=== PATIENT | female | born 1970 | race Caucasian/White ===

== ENCOUNTER → 2020-03-08 16:17 | Outpatient (CLI) | payer OTHER, SELFPAY ==
--- NOTE | ~2020-03-08 | MM_ITS ---
EXAMINATION: MM screening [facility] BI w irwin HISTORY: Screening mammogram TECHNIQUE: Craniocaudal and mediolateral oblique 3-D tomosynthesis images were obtained and synthetic 2-D images were generated. CAD analysis was submitted and interpreted. COMPARISON: 01/07/2019, 01/01/2018, 01/03/2017, 12/14/2016 BREAST PARENCHYMAL COMPOSITION: The breasts are heterogeneously dense, which may obscure small masses . FINDINGS: There is no evidence of suspicious mass, calcification, or architectural distortion to sugg est malignancy in either breast. There has been no suspicious interval change. IMPRESSION: 1. No mammographic evidence of malignancy. 2. Recommend routine screening mammography in one year. BI-RADS Category 1: Negative Reviewed, dictated and finalized at location A.
== END ==
PROVIDERS: PCP Family Medicine; Visit Provider Obstetrics & Gynecology
DX: Z12.31 Encounter for screening mammogram for malignant neoplasm of breast (principal)
CPT/HCPCS: 77063; 77067

== ENCOUNTER → 2021-03-30 15:40 | Outpatient (CLI) | payer BC, SELFPAY ==
--- NOTE | ~2021-03-30 | MM_ITS ---
EXAMINATION: MM screening [facility] BI w irwin HISTORY: Screening mammogram TECHNIQUE: Craniocaudal and mediolateral oblique 3-D tomosynthesis images were obtained and synthetic 2-D images were generated. CAD analysis was submitted and interpreted. COMPARISON: 03/08/2020, 01/07/2019, 12/28/2017 bilateral digital screening mammogram examinations BREAST PARENCHYMAL COMPOSITION: There are scattered areas of fibroglandular density. FINDINGS: There is a cluster of grouped microcalcifications near the lateral subareolar area of the l eft breast. Diagnostic left mammogram with magnification views is recommended. Otherwise there is no evidence of suspicious mass, calcification, or architectural distortion to sugg est malignancy in either breast. There has been no other suspicious interval change. IMPRESSION: 1. Cluster of grouped microcalcifications near lateral subareolar left breast 2. Diagnostic left mammogram with magnification views is recommended BI-RADS Category 0: Incomplete: Needs additional imaging evaluation. Reviewed, dictated and finalized at location A.
== END ==
PROVIDERS: Visit Provider Obstetrics & Gynecology
DX: Z12.31 Encounter for screening mammogram for malignant neoplasm of breast (principal); R92.8 Other abnormal and inconclusive findings on diagnostic imaging of breast
CPT/HCPCS: 77063; 77067

== ENCOUNTER 2021-04-14 12:28 | Outpatient (CLI) | payer BC, SELFPAY ==
--- NOTE | ~2021-04-14 | MM_ITS ---
EXAMINATION: MM diagnostic mammo unilat LT HISTORY: Follow-up left breast calcifications TECHNIQUE: Additional 3-D tomosynthesis images of the left breast were performed and synthetic 2-D im ages were generated. CAD analysis was submitted and interpreted. COMPARISON: 03/30/2021 BREAST PARENCHYMAL COMPOSITION: The breasts are heterogenously dense, which may obscure small masses. FINDINGS: There are punctate subareolar calcifications of the left breast which have a monomorphic ap pearance, likely benign. There are no discrete masses or architectural distortion. IMPRESSION: 1. Probable benign left breast calcifications. 2. Recommend 6 month follow-up diagnostic left mammogram. BI-RADS category 3, probably benign findings. Reviewed, dictated and finalized at location A.
== END 2021-04-14 12:29 | disposition home or self-care (01) ==
PROVIDERS: Visit Provider Obstetrics & Gynecology
DX: R92.1 Mammographic calcification found on diagnostic imaging of breast (principal)
CPT/HCPCS: 77065

== ENCOUNTER → 2021-10-14 14:12 | Outpatient (CLI) | payer BC, SELFPAY ==
--- NOTE | ~2021-10-14 | MMUS_ITS ---
EXAMINATION: MM diagnostic [facility] LT w irwin, US breast LT limited HISTORY: Probable benign left breast calcifications reported on 04/2021 diagnostic left mammogram TECHNIQUE: ML, MLO and CC 3-D tomosynthesis images of the left breast were performed and synthetic 2- D images were generated. Magnification ML, MLO and CC views of left breast. CAD analysis was submitte d and interpreted. High resolution left subareolar breast ultrasound was performed. COMPARISON: 04/2021 diagnostic left mammogram 03/30/2021 bilateral screening mammogram BREAST PARENCHYMAL COMPOSITION: There are scattered areas of fibroglandular density. FINDINGS: MAMMOGRAPHIC FINDINGS: Occasional benign microcalcifications are again noted, including a small subtle cluster grouped micro calcifications in the lateral subareolar area, which includes multiple rounded microcalcifications in one larger amorphous calcification one might expect with calcified fibroadenoma or papilloma.. No vargas spicious linear or branching microcalcifications are noted. Very occasional additional microcalcifications are noted on the left, with benign features. ULTRASOUND: Real-time imaging of the subareolar area was performed. 1-2 o'clock subareolar area: Parallel circumscribed sonolucency measuring 2.1 x 4.4 x 6.5 mm, with th rough transmission, consistent with small cyst or duct 6:00 subareolar area: Septated 2.4 x 4.7 x 5.6 mm cyst with through transmission No suspicious mass or posterior shadowing is detected. IMPRESSION: 1. Benign findings 2. Routine annual mammographic screening is recommended BI-RADS Category 2: Benign finding(s). Reviewed, dictated and finalized at location A. IMPRESSION: 1. Benign findings 2. Routine annual mammographic screening is recommended BI-RADS Category 2: Benign finding(s).
== END ==
PROVIDERS: PCP Family Medicine; Visit Provider Obstetrics & Gynecology
DX: R92.1 Mammographic calcification found on diagnostic imaging of breast (principal)
CPT/HCPCS: 76642; 77061; 77065; G0279

== ENCOUNTER → 2022-11-28 15:32 | Outpatient (CLI) | payer BC, SELFPAY ==
--- NOTE | ~2022-11-28 | MM_ITS ---
EXAMINATION: MM screening [facility] BI w irwin HISTORY: Screening mammogram TECHNIQUE: Craniocaudal and mediolateral oblique 3-D tomosynthesis images were obtained and synthetic 2-D images were generated. CAD analysis was submitted and interpreted. COMPARISON: 10/14/2021 diagnostic left mammogram and limited left breast ultrasound 04/14/2021 diagnostic left mammogram 03/30/2021, 02/29/2020 bilateral screening mammogram BREAST PARENCHYMAL COMPOSITION: There are scattered areas of fibroglandular density. FINDINGS: There is no evidence of suspicious mass, calcification, or architectural distortion to sugg est malignancy in either breast. There has been no suspicious interval change. IMPRESSION: 1. No mammographic evidence of malignancy. 2. Recommend routine screening mammography in one year. BI-RADS Category 1: Negative Reviewed, dictated and finalized at location A.
== END ==
PROVIDERS: PCP Family Medicine; Visit Provider Obstetrics & Gynecology
DX: Z12.31 Encounter for screening mammogram for malignant neoplasm of breast (principal)
CPT/HCPCS: 77063; 77067

== ENCOUNTER → 2023-11-06 16:43 | Outpatient (CLI) | payer OTHER, SELFPAY ==
--- NOTE | ~2023-11-06 | XR_ITS ---
EXAM: XR hip RT 2V w AP pelvis DATE: 11/06/2023 16:57 HISTORY: M25.551 - Pain in right hip,worsenig trouble w/flexibility . COMPARISON: None available. FINDINGS: Normal mineralization. No fracture or dislocation. No lytic or blastic lesion. IUD overlyi ng the pelvis. Pelvic phleboliths. Severe superior joint space narrowing and subchondral sclerosis in the right hip, with moderate osteophytosis. No erosion or periosteal change. Soft tissues within nor mal limits. IMPRESSION: Severe right hip osteoarthritis. Reviewed, dictated and finalized at location K.
== END ==
PROVIDERS: PCP Family Medicine; Visit Provider Family Medicine
DX: M16.11 Unilateral primary osteoarthritis, right hip (principal)
CPT/HCPCS: 73502

== ENCOUNTER 2024-02-13 13:44 | Outpatient (CLI) | payer OTHER, SELFPAY ==
--- NOTE | ~2024-02-13 | MM_ITS ---
EXAMINATION: MM screening [facility] BI w irwin HISTORY: Screening TECHNIQUE: Craniocaudal and mediolateral oblique 3-D tomosynthesis images were obtained and synthetic 2-D images were generated. CAD analysis was submitted and interpreted. COMPARISON: Comparison to multiple prior studies sequentially, with oldest reviewed study dated 01/07. BREAST PARENCHYMAL COMPOSITION: Not dense: There are scattered areas of fibroglandular density. FINDINGS: There is no evidence of suspicious mass, calcification, or architectural distortion to sugg est malignancy in either breast. There has been no suspicious interval change. IMPRESSION: 1. No mammographic evidence of malignancy. 2. Recommend routine screening mammography in one year. BI-RADS Category 1: Negative Reviewed, dictated and finalized at location B.
== END 2024-02-13 13:45 | disposition home or self-care (01) ==
LOC: MICIMG 13:44
PROVIDERS: PCP Obstetrics & Gynecology; Visit Provider Obstetrics & Gynecology
DX: Z12.31 Encounter for screening mammogram for malignant neoplasm of breast (principal)
CPT/HCPCS: 77063; 77067

== ENCOUNTER 2024-02-22 14:13 | Outpatient (CLI) | payer OTHER, SELFPAY ==
[2024-02-22 14:32] LABS: Hematocrit 40.3 % (37.0-47.0); Hemoglobin 13.5 g/dL (12.0-15.0)
--- NOTE | 2024-02-22 14:35 | ECG_ITS ---
Test Date: 2024-02-22 14:42:42 Measurements Intervals [place] Rate: 78 P: 62 KS: 178 QRS: 55 QRSD: 89 T: 52 QT: 372 QTc: 424 Interpretive Statements SINUS RHYTHM NORMAL ECG No previous ECG available for comparison Electronically Signed On 02-22-2024 14:45:03 CDT by [place] Ornelas D.O.
[2024-02-22 14:41] LABS: Albumin Level 4.4 g/dL (3.5-5.1); Estimated Glomerular Filt Rate > 60; Glucose 112 mg/dL (65-110)
== END 2024-02-22 14:14 | disposition home or self-care (01) ==
LOC: ANHLAB 14:14
PROVIDERS: PCP Family Medicine; Visit Provider Orthopaedic Surgery
DX: E55.9 Vitamin D deficiency, unspecified (principal); E78.5 Hyperlipidemia, unspecified; M16.11 Unilateral primary osteoarthritis, right hip; I10 Essential (primary) hypertension
CPT/HCPCS: 36415; 82040; 82565; 82947; 85014; 85018; 93005

== ENCOUNTER 2024-04-30 13:56 | Outpatient (CLI) | payer BC, SELFPAY ==
[2024-04-30 15:28] LABS: Basophils Percent Auto 0.6 % (0.2-1.2); Eosinophils Absolute Auto 0.1 K/mm3 (0-0.3); Eosinophils Percent Auto 1.5 % (0-4.4); Hematocrit 41.5 % (37.0-47.0); Hemoglobin 13.7 g/dL (12.0-15.0); Immature Granulocyte Absolute 0.02 K/mm3 (0.00-0.031); Immature Granulocyte Percent A 0.3 % (0-0.5); Lymphocytes Absolute Auto 2.28 K/mm3 (0.9-3.2); Lymphocytes Percent Auto 31.8 % (18.3-44.2); Mean Corpuscular Hemoglobin 30.9 pg (26-34); Mean Corpuscular Volume 93.7 fl (80-100); Mean Platelet Volume 8.7 fl (7.4-10.4); Monocytes Absolute Auto 0.7 K/mm3 (0.1-0.6); Monocytes Percent Auto 10.3 % (2.6-8.5); Neutrophils Percent Auto 55.5 % (45.5-73.1); Platelet Count Result 232 k/mm3 (150-375); Red Blood Count 4.43 M/mm3 (4.2-5.4); Red Cell Distribution Width 11.4 % (11.5-14.5); White Blood Count 7.2 K/mm3 (4.5-10.0)
[2024-04-30 15:39] LABS: Albumin Level 4.8 g/dL (3.5-5.1); Estimated Glomerular Filt Rate > 60; Glucose 113 mg/dL (65-110)
[2024-04-30 16:05] LABS: Urine Cotinine NEGATIVE
[2024-04-30 16:45] LABS: MRSA (PCR) NOT DETECTED (NOT DETECTE)
== END 2024-04-30 13:57 | disposition home or self-care (01) ==
PROVIDERS: PCP Family Medicine; Visit Provider Orthopaedic Surgery
DX: M16.11 Unilateral primary osteoarthritis, right hip (principal); Z01.818 Encounter for other preprocedural examination
CPT/HCPCS: 80307; 82040; 82565; 82947; 83036; 85025; 87641

== ENCOUNTER 2024-05-22 01:53 | Day surgery (SDC) | payer BC, SELFPAY ==
[2024-04-30 14:18] VITALS: BP 138/85; PULSE 76; RESP 16; TEMP 36.7; O2SAT 100; BMI 32.5
--- NOTE | 2024-04-30 14:37 | PC.NURSE ---
Report to the Outpatient Waiting Room, entrance under the green pavilion located off [facility], at time ___8:30AM____ on date ___05/22/24____. Planned Procedure Time: ___10:30AM .? Time changes happen often and if your time is changed the preop area will call you the afternoon before. - You and your visitor will be asked to self-screen and do not enter if you have any COVID symptoms. Please call surgeon if you need to reschedule. - A mask is optional within the hospital at this time. Patients may have clear liquids (water, carbonated beverages, clear teas, apple juice) until 3 hours prior to surgery with a maximum of 20 ounces. - No food from midnight until time of surgery and no smoking. This includes no chewing gum, candy or mints. Take only the following medications with a SIP of water on the morning of surgery: NONE DO NOT STOP ANY OF YOUR OTHER PRESCRIPTION MEDICATIONS PRIOR TO SURGERY EXCEPT THE FOLLOWING Medications to discontinue per physician HOLD MELOXICAM (NSAIDS) AND ALL VITAMINS/SUPPLEMENTS 7 DAYS PRE-OP PER DR LLANOS Date to take last dose 05/14/24 Please no make-up, nail japanese, hairspray, perfume, deodorant, or body powder the day of surgery.? No jewelry (including any body piercings) or valuables the day of surgery, leave them at home.? Please take a shower or bath the night before, or the morning of, surgery with an antibacterial soap.? Wear comfortable, loose fitting clothing.? - Jewelry must be removed prior to entering the operating room.? Rings and piercings that are not removed may be cut off. - The hospital will not accept responsibility for valuables.? - Please leave all valuables, including medications, at home the day of surgery. If you are going home after surgery, a licensed delivery driver assistant must drive you home.? - NO public transportation without another adult if you receive anesthesia. - We recommend that an adult stay with you for 24 hours following discharge. - We also recommend that you do not drive, make important decision, drink alcoholic beverages, or take any drugs that were not prescribed by your health care provider for at least 24 hours after your discharge time. Follow any additional instructions given to you from your surgeon. Telephone instructions given to ____PATIENT & HUSBAND and asked if any additional questions and then verbalized understanding. Patient advised to call surgeon office or pre surgery nurse liaison [phone] if any additional questions.
[2024-05-22] VITALS (15 sets, daily range): BP systolic 101–152; BP diastolic 50–85; PULSE 74–97; RESP 10–20; TEMP 35.9–37; O2SAT 94–100
--- NOTE | ~2024-05-22 | XR_ITS ---
EXAMINATION: XR hip RT min 2V DATE: 05/22/2024 12:59 INDICATION: Right total hip arthroplasty. TECHNIQUE: No prior studies for comparison. FINDINGS: There is a right total hip arthroplasty in expected position. Subcutaneous gas with soft t issue swelling are consistent with recent surgery. IMPRESSION: 1. Recent right total hip arthroplasty. Reviewed, dictated and finalized at location B. NE OILER
--- NOTE | ~2024-05-22 | XR_ITS ---
EXAMINATION: XR surgery orthopedic DATE: 05/22/2024 11:23 INDICATION: Unilateral primary osteoarthritis, right hip. TECHNIQUE: 2 intraoperative fluoroscopic views of right hip were obtained. COMPARISON: None. FINDINGS: There is a total right hip arthroplasty in near-anatomic alignment. No displaced fracture. The soft tissue defect overlying the greater tuberosity decreases sensitivity and specificity for fra cture. There is a cable around the proximal femur. IMPRESSION: 1. Total right hip arthroplasty in near-anatomic alignment. Reviewed, dictated and finalized at location A. HOUSEKEEPER
--- NOTE | 2024-05-22 07:18 | WPDHPUPDATE1 ---
History and Physical Update Update Date/Time: 05/22/24 07:18 History and Physical has been reviewed, including an updated exam of the patient. There are NO changes in the patient's condition. Risks, benefits, and alternatives have been discussed and questions answered. Patient agrees to proceed with procedure.
[2024-05-22] MEDS: ACETAMINOPHEN 500 MG TABLET 1000 MG PO (08:45)
[2024-05-22] MEDS: LACTATED RINGERS 1,000 ML 30 ML IV CONT (08:45)
[2024-05-22] MEDS: SODIUM CHLORIDE 0.9% IV 37.7 ML, MORPHINE SULFATE INJ (*CRX) 2 MG, ROPivacaine HCL 1% 2... INFILTRATE (08:46)
[2024-05-22] MEDS: TRANEXAMIC ACID 1,000 MG/10 ML AMPUL 1000 MG IV PUSH (08:47)
--- NOTE | 2024-05-22 09:27 | P.PNAN_ITS ---
Anes - Initial Pre Proc Eval Procedure: Operation Date: 05/22/24 10:30 Proposed Procedures p Right Total Hip Arthroplasty - Tong West MD Date/Time: 05/22/24 09:27 Surgeon: Tong West MD Pre Op Diagnosis: primary oa right hip Patient Data Age: 54 Gender: F Height: 1.7 m Weight: 93.5 kg Last Vital Signs Temp 98.0 F 04/30/24 14:18 Pulse 76 04/30/24 14:18 Resp 16 04/30/24 14:18 BP 138/85 04/30/24 14:18 Pulse Ox 100 04/30/24 14:18 O2 Del Method Room Air 04/30/24 14:18 Allergies Allergy/AdvReac Type Severity Reaction Status Date / Time No Known Allergies Allergy Verified 04/30/24 15:06 Home Medications ?Medication ?Instructions ?Recorded ?Confirmed ?Type ascorbic acid (vitamin C) 1,000 mg 1 g PO DAILY 10/10/21 04/30/24 History tablet vitamin B complex (B-Complex 1 tablet PO DAILY 10/10/21 04/30/24 History tablet) ergocalciferol (vitamin D2) 1,250 50,000 unit PO WEEKLY #4 caps 10/29/23 04/30/24 Rx mcg (50,000 unit) capsule (Vitamin D2) meloxicam 15 mg tablet 15 mg PO DAILY PRN pain #30 tabs 11/06/23 04/30/24 Rx lisinopril 30 mg tablet 30 mg PO QAM 04/30/24 04/30/24 History Patient hx anesthesia problems: none Family hx anesthesia problems: none Results Review: All pre-operative results and documents have been reviewed as part of the pre- operative evaluation. [facility] Past Medical History Medical History Arthritis of right hip Chronic pain of right hip (~2022) x-ray of the right hip 11/06/2023 with severe osteoarthritis. Encounter for IUD insertion mirena iud 2018 BMI 28.0-28.9,adult BMI 27.0-27.9,adult Overweight (BMI 25.0-29.9) BMI 30.0-30.9,adult Obesity (BMI 30.0-34.9) COVID-19 (~01/31/21) Elevated alkaline phosphatase level (09/25/20) alkaline phosphatase slightly elevated at 133 on 09/25/2020. Level normal at 96 on 10/08/2021. Level normal at 93 with AST 16, ALT 8 on 10/14/2022. Colon cancer screening Breast cancer screening by mammogram Mammogram normal 11/28/2022. Mixed hyperlipidemia Total cholesterol 154, triglycerides 41, HDL 83, LDL 61 on 10/08/2021. Total cholesterol 171, triglycerides 38, HDL 77, LDL 86 on 10/14/2022. Vitamin B12 deficiency anemia Level normal at 770 on 10/08/2021. Folic acid normal at greater than 20 with hemoglobin 14.6. Level normal at 836 with hemoglobin 13.7 on 11/03/2023. Bilateral chronic knee pain Adult BMI 37.0-37.9 kg/sq m Tooth pain Family History Family History Father Malignant neoplasm of prostate Mother Family history of diabetes mellitus in first degree relative Diabetes mellitus, Onset Age: 56 Family history of mental disorder, Onset Age: 56 Depression, Onset Age: 56 Grandparent Diabetes mellitus, Onset Age: 61 Family history of cardiovascular disease Family history of Alzheimer's disease, Onset Age: 87 Other Hypertension Social History Social History Smoking status: Never smoker Alcohol intake: current Drinks per week: 14 Substance use: never Do You Feel Safe in your Home?: Yes Lack of Transportation: No Lack of Food: Never True Current Housing: I Have Housing Concerned About Future Housing: No Difficulty Paying Gas/Electric Bills: No Difficulty Paying for Meds: No Currently Unemployed: No Education: Bachelor's Degree Difficulty w/ Childcare or Family Care: No Living arrangements: with family Additional living arrangements comments: [place] Occupation/Education: occupation Gender identity (if verbalized by the patient): Female Sexual Orientation (if Verbalized by the Patient): Straight or Heterosexual Spiritual care concerns: No Anes - Eval Final PreProcedure Day of Procedure 05/22/24 09:27 Patient weight: obese Heart: regular rate and rhythm Lungs: clear to auscultation Airway: Mallampati scale class II and special considerations (Missing post upper R tooth. ) Neurological: alert and oriented Last oral intake: >/= 8 hours ASA classification: III Emergent: no Anesthetic plan: proceed Anesthesia type and monitoring: general ETT and standard monitoring Results Review: All pre-operative results and documents have been reviewed as part of the pre- operative evaluation. HTN, EKG w NSR. Informed Consent: The patient's anesthetic plan and its attendant risks and benefits were discussed with the patient/family/POA. Questions were solicited and answers provided to the satisfaction of the patient/family/POA.
[2024-05-22] MEDS: ceFAZolin 2 GM/D5W 50 ML 2 GM/50 ML BAG IVPB ×2 (09:45→17:12)
[2024-05-22 10:52] LABS: BEDSIDEPREGUCG Negative (Negative)
[2024-05-22] MEDS: fentaNYL CITRATE INJ (*CRX) 100 MCG/2 ML VIAL 25 MCG IV PUSH ×4 (12:56→13:12)
--- NOTE | 2024-05-22 14:37 | ADMGEN ---
This patient, Xenia Marmolejo, was admitted to [facility] Surg Room 323-02. Patient/family oriented to hospital policies and general routines including ID bracelet, bed and alarms, visiting hours, pain management, procedures, bathroom and other care routines, personal items, smoking policy, room service/diet, and visiting hours. Information on how to activate the Rapid Response Team has been discussed. Patient/Family are encouraged to report perceived risks to care and to ask questions if they do not understand what they are told or what they should do.
[2024-05-22] MEDS: SODIUM CHLORIDE 0.9% IV 1,000 ML 125 ML IV CONT (15:24)
[2024-05-22] MEDS: lisinopriL 10 MG TABLET 30 MG PO (15:25)
[2024-05-22] MEDS: SENNA/DOCUSATE SODIUM TABLET 2 TAB PO (16:26)
[2024-05-22] MEDS: MELOXICAM 7.5 MG TABLET PO (16:26)
[2024-05-22] MEDS: ACETAMINOPHEN 325 MG TABLET 650 MG PO (17:12)
--- NOTE | 2024-05-22 17:18 | W.PM.PROC2 ---
Procedure Note - Detailed Date of Procedure 05/22/24 Pre-op Diagnosis Severe right hip arthritis secondary to hip dysplasia Post-op Diagnosis Same Procedure Performed Right Total Hip Arthroplasty Surgeon Tong West MD Drafter Electromechanical Priya Muir PA-C Anesthesia General Findings Dysplasia of the hip. Good bone coverage for the acetabulum. Minimal nisqually femoral anteversion and small proximal diameter. Intraoperative calcar fracture during femoral component insertion. The stem was removed, a cable placed around the calcar, and the stem replaced with excellent press fit. Due to the deep soft tissue envelope, a negative pressure dressing was placed. Description of Procedure The patient was given preoperative antibiotics. A general anesthetic was administered. The patient was carefully placed in the lateral decubitus position on the PEG board. The shoulders and hips were carefully positioned for component and leg length positioning reference. The hip was prepped and draped in the usual sterile fashion. A longitudinal incision was created over the posterior aspect of the greater trochanter. Careful dissection was brought down through the deep fascia with electrocautery. A minimally invasive optimized posterior approach to the hip was performed. The short external rotators and capsule were taken down in an L-shaped capsulotomy. The tissue was tagged for later repair using number 2 high strength suture. The femoral neck was measured and taken in situ. The femoral head was removed. The acetabulum was carefully exposed. The inferior capsule was released. The labrum was resected. The acetabulum was sequentially reamed to the intended cup size. The cup was impacted into position with excellent press-fit. Typical anatomic landmarks, including the bony contact points as well as the inferior transverse acetabular ligament were used to confirm cup positioning with preoperative templating. A screw was placed for added cup stability. The trial liner was placed. Attention was turned to the femur, which was carefully exposed. The hip was reamed and then broached sequentially. Excellent press-fit was obtained with the broach. The hip was trialed. Measurements were utilized, including the lesser trochanter as well as the center of the femoral head and the tip of the trochanter, and excellent assessment of the offset and leg lengths were confirmed. Intraoperative x-ray was taken. The stem was downsized from a 3 to a 2. The real component was impacted into position. The medial calcar developed a fracture line. The stem was removed and a 2.0 mm cable was placed around the calcar. The stem was impacted with excellent press-fit. Trialing confirmed appropriate leg length and offset with soft tissue balancing as well apparent feel of the leg, both at the knee and the heel. Soft tissues were assessed using the the iliotibial band. Reduction of the posterior capsule and external rotators were also used as a secondary assessment. The hip was copiously irrigated with pulsatile lavage periodically throughout the procedure. The real femoral head was placed and the joint was reduced. The hip was stable throughout typical maneuvers, including extension, external rotation to 70 degrees, the position of sleep as well as flexion to 90 degrees with internal rotation past 30 degrees. The shake test confirmed stability without impingement. The short external rotators and capsule were repaired back to the posterior trochanter through drill holes. The deep fascia was repaired with running number 2 barbed suture, followed by 2-0 Stratafix suture and 3-0 Stratafix suture in the dermis. Steri-Strips were placed on the skin, followed by a sterile occlusive suction dressing. There were no complications. Meticulous hemostasis was maintained with the AquaMantys device. The patient was brought to the recovery room in stable condition. Physician civil engineering assistant, Priya Muir PA-C, required for surgery; including patient positioning, draping, tissue retraction, maintaining instrument position, hip dislocation/ relocation, wound closure, and dressing placement. Implants The Accolade II hip stem, 132 degree size 2 , was utilized with excellent press-fit. The 50 mm Trident II acetabular component was impacted with excellent press-fit stability. Standard polyethylene liner the +5, 36 mm Biolox ceramic femoral head was utilized. Estimated Blood Loss 200 Drains No Packing No Pathology None sent Complications No immediate complications Condition Stable Disposition PACU [facility] Billing Surgery - Charge Forward: Surgery Billing
[2024-05-22] MEDS: ASPIRIN 81 MG ENTERIC TABLET PO (20:28)
[2024-05-22] MEDS: FAMOTIDINE 20 MG TABLET PO (20:28)
[2024-05-23] MEDS: ACETAMINOPHEN 325 MG TABLET 650 MG PO ×2 (00:18→05:20)
[2024-05-23] MEDS: oxyCODONE/ACETAMINOPHEN (*CRX) 5-325 MG TABLET 1 TABLET PO ×2 (00:23→08:15)
[2024-05-23] MEDS: ceFAZolin 2 GM/D5W 50 ML 2 GM/50 ML BAG IVPB (03:01)
[2024-05-23 03:52] VITALS: BP 100/57; PULSE 83; RESP 20; TEMP 37.5; O2SAT 97
[2024-05-23 06:30] LABS: Basophils Percent Auto 0.2 % (0.2-1.2); Eosinophils Percent Auto 0.2 % (0-4.4); Hematocrit 32.7 % (37.0-47.0); Hemoglobin 10.8 g/dL (12.0-15.0); Immature Granulocyte Absolute 0.13 K/mm3 (0.00-0.031); Immature Granulocyte Percent A 1.6 % (0-0.5); Lymphocytes Absolute Auto 2.12 K/mm3 (0.9-3.2); Lymphocytes Percent Auto 25.7 % (18.3-44.2); Mean Corpuscular Hemoglobin 31.4 pg (26-34); Mean Corpuscular Volume 95.1 fl (80-100); Mean Platelet Volume 8.3 fl (7.4-10.4); Monocytes Absolute Auto 0.8 K/mm3 (0.1-0.6); Monocytes Percent Auto 9.7 % (2.6-8.5); Neutrophils Absolute Auto 5.2 K/mm3 (1.3-6.7); Neutrophils Percent Auto 62.6 % (45.5-73.1); Platelet Count Result 186 k/mm3 (150-375); Red Blood Count 3.44 M/mm3 (4.2-5.4); Red Cell Distribution Width 11.6 % (11.5-14.5); White Blood Count 8.3 K/mm3 (4.5-10.0)
[2024-05-23 06:42] LABS: Anion Gap 4 mmol/L (4-12); Blood Urea Nitrogen 12 mg/dL (7-17); Calcium 8.3 mg/dL (8.4-10.2); Carbon Dioxide 29 mmol/L (22-30); Chloride 103 mmol/L (98-107); Estimated CRCL calculation 91 ml/min; Estimated Glomerular Filt Rate > 60; Glucose 102 mg/dL (65-110); Potassium 3.8 mmol/L (3.4-5.0); Sodium 136 mmol/L (137-145)
[2024-05-23 07:52] VITALS: BP 102/58; PULSE 83; RESP 18; TEMP 36.6; O2SAT 99
[2024-05-23] MEDS: CYCLOBENZAPRINE HCL 10 MG TABLET PO (08:16)
[2024-05-23] MEDS: MELOXICAM 7.5 MG TABLET PO (08:17)
[2024-05-23] MEDS: lisinopriL 10 MG TABLET 30 MG PO (08:17)
[2024-05-23] MEDS: ASPIRIN 81 MG ENTERIC TABLET PO (08:17)
[2024-05-23] MEDS: ASCORBIC ACID 500 MG TABLET 1000 MG PO (08:17)
[2024-05-23] MEDS: VITAMIN B COMPLEX CAPSULE 1 CAP PO (08:17)
[2024-05-23] MEDS: SENNA/DOCUSATE SODIUM TABLET 2 TAB PO (08:17)
[2024-05-23] MEDS: polyethylene glycoL 3350 17 GM POWD.PACK PO (08:18)
[2024-05-23] MEDS: FAMOTIDINE 20 MG TABLET PO (08:18)
--- NOTE | 2024-05-23 09:42 | P.DS_ITS ---
DS: Admitting Diagnosis Discharge Date 05/23/24 Admitting Diagnosis Hip arthritis. DS: Discharge Diagnosis Discharge Diagnosis (1) Status post total hip replacement, right: Code(s): Z96.641 - Presence of right artificial hip joint Status: Acute Assessment and Plan: Postop day 1: Right total Hip arthroplasty. Patient tolerated procedure well. Patient's femur dis crack intra-operatively. A cable was placed. Patient is notified. We recommend toe touch weight bearing only for 6 weeks. Pain manageable with pain medication. No numbness or tingling. We had a lengthy discussion regarding postoperative wound care, limitations, expectations, and exercises. Patient shows good understanding. She has had initial physical therapy and is tolerating it well. DVT prophylaxis: 81 mg baby aspirin b.i.d. for 14 days. Pain medication: Percocet. Meloxicam. Patient has followup appointment with Dr. West in 3 weeks. DS: Summary Hospital Course Reason for hospitalization: Total hip arthroplasty Hospital Course: Patient tolerated procedure well. Has had initial PT/OT and made good progress. Status at Discharge Functional status at discharge: uses cane/walker Overall status at discharge: patient is progressing back to baseline Time Spent with Patient Time attestation: Total time spent providing and/or coordinating discharge services: Exam Narrative: Overweight 54 y/o female. Resting comfortably in bed. Wearing compression socks bilaterally. Dressing dry and intact with no drainage. Prevena dressing intact. No bleeding or drainage in canister. Moderate swelling. No ecchymosis. No erythema. No hematoma. Range of motion limited due to pain. Calf nontender. Thigh nontender. Neurologic status intact. No varicosities. Distal pulses palpable. DS: Data Data Completed and Pending Labs on day of discharge: Labs from last 24 hours 05/23/24 05/22/24 05/22/24 06:11 09:00 08:56 WBC 8.3 RBC 3.44 L Hgb 10.8 L Hct 32.7 L MCV 95.1 MCH 31.4 MCHC 33.0 RDW 11.6 Plt Count 186 MPV 8.3 Immature Gran % (Auto) 1.6 H Neut % (Auto) 62.6 Lymph % (Auto) 25.7 [place] % (Auto) 9.7 H Eos % (Auto) 0.2 Baso % (Auto) 0.2 Lymph # (Auto) 2.12 [place] # (Auto) 0.8 H Eos # (Auto) 0.0 Baso # (Auto) 0.0 Abs Immat Gran (auto) 0.13 H Absolute Neuts (auto) 5.2 Absolute Nucleated RBC 0.000 Nucleated RBC % 0.0 Sodium 136 L Potassium 3.8 Chloride 103 Carbon Dioxide 29 Anion Gap 4 BUN 12 Creatinine 0.70 Estim Creat Clear Calc 91 Estimated GFR > 60 Glucose 102 Calcium 8.3 L POC Urine HCG, Qual Negative Blood Type B Positive Antibody Screen Negative Discharge Plan Discharge Patient Disposition: Home, Self-Care Discharge Instructions: See green instruction sheets Patient Language: Kinyarwanda Stand Alone Forms: General Discharge Instructions Follow-up/Referrals: Priya Muir PA [Physician Screw Machine Set Up Operator] - Discharge Medications: New aspirin 81 mg tablet,delayed release (DR/EC) 81 mg PO BID 14 Days Qty: 28 0RF oxycodone-acetaminophen 5-325 mg tablet 1 - 2 tablet PO Q4-6H MDD 6 PRN (Reason: pain) 7 Days Qty: 30 0RF Continued meloxicam 15 mg tablet 15 mg PO DAILY PRN (Reason: pain) Qty: 30 11RF vitamin B complex [B-Complex] Tablet 1 tablet PO DAILY ascorbic acid (vitamin C) 1,000 mg tablet 1 g PO DAILY lisinopril 30 mg tablet 30 mg PO QAM ergocalciferol (vitamin D2) [Vitamin D2] 1,250 mcg (50,000 unit) capsule 50,000 unit PO WEEKLY Qty: 4 11RF Patient Comments: SUNDAYS
[2024-05-23 10:03] VITALS: PULSE 83; RESP 18; O2SAT 99
== END 2024-05-23 11:45 | disposition home or self-care (01) ==
LOC: ANHSURGERY 13:05 → ANH3MEDSUR 14:09
PROVIDERS: Physician Assistant Surgical; PCP Family Medicine; Visit Provider Orthopaedic Surgery
PROC: (CPT 27130; principal; 2024-05-22 10:30)
DX: M16.11 Unilateral primary osteoarthritis, right hip (principal); G89.29 Other chronic pain; E78.2 Mixed hyperlipidemia; D51.3 Other dietary vitamin B12 deficiency anemia; E66.9 Obesity, unspecified; Z68.33 Body mass index [BMI] 33.0-33.9, adult
CPT/HCPCS: 27130; 36415; 73502; 80048; 85025; 86850; 86900; 86901; 97110; 97161; 97165; 97535; 99199; A9270; C1776; J0171; J0690; J1100; J1171; J1885; J2003; J2250; J2270; J2405; J2704; J2795; J3010; J7030; J7120

== ENCOUNTER 2024-08-20 12:30 | Outpatient (CLI) | payer BC, SELFPAY ==
--- NOTE | ~2024-08-20 | XR_ITS ---
XR hip RT 2V w AP pelvis Ordering provider: Tong West MD History: . Z96.641 - Presence of right artificial hip joint 3 MO P/O . Comparison: July 14, 2024 FINDINGS: BONES: No acute fracture or dislocation. HIP JOINT SPACES: Right hip arthroplasty. SACROILIAC JOINT SPACES/LUMBAR SPINE: The sacroiliac joint spaces are normal. Normal visualized lower lumbar spine. PUBIC SYMPHYSIS: Normal. SOFT TISSUES: Normal. IMPRESSION: No acute osseous abnormality pelvis. Right hip arthroplasty. Reviewed, dictated and finalized at location A.
== END 2024-08-20 12:31 | disposition home or self-care (01) ==
LOC: ANHIMG 12:33
PROVIDERS: PCP Family Medicine; Visit Provider Orthopaedic Surgery
DX: Z96.641 Presence of right artificial hip joint (principal)
CPT/HCPCS: 73502

== ENCOUNTER 2025-01-09 12:36 | Outpatient (CLI) | payer BC, SELFPAY ==
--- NOTE | ~2025-01-09 | XR_ITS ---
Left Knee Technique: AP, lateral, and sunrise views were obtained. Clinical History: Pain Findings: No fracture or dislocation is seen. There is severe degenerative change of the lateral comp artment. There is lateral compartment narrowing with extensive osteophyte formation of the joint line . There is moderate to advanced degenerative change of the patellofemoral compartment. There is mild to moderate degenerative change of the medial compartment. Soft tissues are unremarkable. No joint ef fusion is seen. Impression: Tricompartmental degenerative change, severe at the patellofemoral and lateral compartments. Reviewed, dictated and finalized at location M. Impression: Tricompartmental degenerative change, severe at the patellofemoral and lateral compartments.
--- OUTSIDE RECORDS SUMMARY | 2025-01-09 12:40 | XMS_ITS | Continuity of Care Document ---
Author Organization [facility] Address [address] [place] [address] Phone Care Team Providers Care Diesel Truck Technician Name Role Phone Belinda Stewart Unavailable Unavailable Advance Directives Directive Yes / No Effective Date File Name No Information Encounters Encounter Description Practice Location Reason(s) For Visit Diagnoses Date Provider Providers Copied on Encounter [facility], [id number] [place] [address] [address], [place], [place], [id number], [place] tel:[phone] [facility] No Information [address] Pat Trevino. [address] , [address], [place], [address], [place]. tel:[phone] Family History Family Member Type Diagnosis Age [...]
== END 2025-01-09 12:37 | disposition home or self-care (01) ==
LOC: ANHLAB 12:37
PROVIDERS: PCP Family Medicine; Visit Provider Orthopaedic Surgery
DX: M17.12 Unilateral primary osteoarthritis, left knee (principal)
CPT/HCPCS: 73564

== ENCOUNTER 2025-02-18 14:24 | Outpatient (CLI) | payer BC, SELFPAY ==
--- OUTSIDE RECORDS SUMMARY | 2006-03-22 08:00 | XMS_ITS | Continuity of Care Document ---
Author Organization [facility] Address [address] [facility] [address] [place] [address] Phone Care Team Providers Care Pipe Threader Name Role Phone Belinda Stewart Unavailable Unavailable Advance Directives Directive Yes / No Effective Date File Name No Information Encounters Encounter Description Practice Location Reason(s) For Visit Diagnoses Date Provider Providers Copied on Encounter [facility], [address] [place] [address] [address], [place], [place], [id number], [place] tel:[phone] [address] [facility] No Information 2-200 6 Pat Trevino. [address] [facility] , [address], [place], [address], [place]. tel:[phone] Family History Family Member Type Diagnosis Age At Onset No Information Payers Payer name Insurance type Covered alliance party ID Authoriza tion(s) No Information Social History [...]
--- NOTE | 2025-02-18 14:38 | ECG_ITS ---
Test Date: 2025-02-18 14:47:45 Measurements Intervals [place] Rate: 68 P: 36 MS: 168 QRS: 53 QRSD: 84 T: 54 QT: 364 QTc: 388 Interpretive Statements SINUS RHYTHM LOW QRS VOLTAGE IN PRECORDIAL LEADS [QRS DEFLECTION < 1.0 mV IN CHEST LEADS] BORDERLINE ECG Compared to ECG 02/22/2024 14:42:42 NO SIGNIFICANT DIFFERENCE Electronically Signed On 02-18-2025 16:27:54 CDT by Vernon Flood M.D.
[2025-02-18 15:24] LABS: Hematocrit 40.2 % (37.0-47.0); Hemoglobin 13.4 g/dL (12.0-15.0)
[2025-02-18 15:37] LABS: Albumin Level 4.6 g/dL (3.5-5.1); Estimated Glomerular Filt Rate > 60; Glucose 96 mg/dL (65-110)
[2025-02-18 16:16] LABS: Hemoglobin A1C 5.4 % (<5.7)
== END 2025-02-18 14:25 | disposition home or self-care (01) ==
LOC: ANHLAB 14:25
PROVIDERS: PCP Family Medicine; Visit Provider Orthopaedic Surgery
DX: D51.9 Vitamin B12 deficiency anemia, unspecified (principal); Z01.818 Encounter for other preprocedural examination; I10 Essential (primary) hypertension
CPT/HCPCS: 36415; 82040; 82565; 82947; 83036; 85014; 85018; 93005

== ENCOUNTER 2025-04-15 13:48 | Outpatient (CLI) | payer BC, SELFPAY ==
--- OUTSIDE RECORDS SUMMARY | 2006-03-22 07:00 | XMS_ITS | Continuity of Care Document ---
Author Organization [facility] Address [address] [facility] [address] [place] [address] Phone Care Team Providers Care Behavior Management Specialist Name Role Phone Belinda Stewart Unavailable Unavailable Advance Directives Directive Yes / No Effective Date File Name No Information Encounters Encounter Description Practice Location Reason(s) For Visit Diagnoses Date Provider Providers Copied on Encounter [facility], [id number] [place] [address] [address], [place], [place], [id number], [place] tel:[phone] [address] [facility] No Information 2-200 6 Pat Trevino. [address] [facility] , [address], [place], [address], [place]. tel:[phone] Family History Family Member Type Diagnosis Age At Onset No Information Payers Payer name Insurance type Covered democrat ID Authoriza tion(s) No Information Social History Type Description Quantity Date Captured Comments Sex Female Smoking Status No Information Chief Complaint And Reason For Visit No Information Reason For Referral Reason For Referral No Information History Of Present Illness Encounter Date Complaint History Of Prese nt Illness No Information Functional Status Date Functional Assessmen t No Information Instructions Date Instruction Additional Infor mation No Information Assessments Type Assessment Date No Information Patient Care Teams Name Effective Dates (start - stop) Status Members No Information
[2025-04-15 14:54] LABS: Hematocrit 40.3 % (37.0-47.0); Hemoglobin 13.3 g/dL (12.0-15.0); Immature Granulocyte Percent A 0.3 % (0-0.5); Lymphocytes Absolute Auto 2.51 K/mm3 (0.9-3.2); Mean Corpuscular HGB Conc 33.0 g/dl (32-36); Mean Corpuscular Hemoglobin 30.7 pg (26-34); Mean Corpuscular Volume 93.1 fl (80-100); Nucleated Red Blood Cells Absolute Auto 0.000 K/mm3 (0.0-0.012); Nucleated Red Blood Cells Perc 0.0 % (0.0-0.2); Platelet Count Result 245 k/mm3 (150-375); Red Blood Count 4.33 M/mm3 (4.2-5.4); White Blood Count 7.1 K/mm3 (4.5-10.0)
[2025-04-15 15:25] LABS: Albumin Level 4.7 g/dL (3.5-5.1); Estimated Glomerular Filt Rate > 60
[2025-04-15 17:03] LABS: MRSA (PCR) NOT DETECTED (NOT DETECTE)
== END 2025-04-15 13:49 | disposition home or self-care (01) ==
LOC: ANHSURGERY 13:54
PROVIDERS: PCP Family Medicine; Visit Provider Orthopaedic Surgery
DX: M17.12 Unilateral primary osteoarthritis, left knee (principal); Z01.818 Encounter for other preprocedural examination
CPT/HCPCS: 80307; 82040; 82565; 85025; 87641

== ENCOUNTER 2025-05-12 03:26 | Day surgery (SDC) | payer BC, SELFPAY ==
[2025-04-15 14:11] VITALS: BP 101/72; PULSE 73; RESP 16; TEMP 36.9; O2SAT 99; BMI 31.7
--- NOTE | 2025-04-15 14:25 | PC.NURSE ---
[facility] has started construction of its new state of the art ER which will open Spring 2026. With this, we anticipate parking may be a challenge for some our surgical patients and families. Parking spaces are limited but are available for all Surgical, obstetrics, and ER patients sharing this lot. If you arrive and find you are having a hard time finding a parking space, please note that we understand the challenges, please drive around the hospital and park near Hospital Entrance 1. When you enter this entrance, you can ask a volunteer to direct or take you back to the surgical waiting area to check in. We appreciate everyone?s understanding of these expected challenges while we build for your future. 12 Report to the Outpatient Waiting Room, entrance under the green pavilion located off [address], at time ___06:00am____ on date __05/12/25 . Planned Procedure Time: ___07:30am .? Time changes happen often and if your time is changed the preop area will call you the afternoon before. - You and your visitor will be asked to self-screen and do not enter if you have any COVID symptoms. Please call surgeon if you need to reschedule. - A mask is optional within the hospital at this time. Patients may have clear liquids (water, carbonated beverages, clear teas, apple juice) until 3 hours prior to surgery with a maximum of 20 ounces. - No food from midnight until time of surgery and no smoking, or chewing tobacco (or any form of nicotine). No chewing gum, candy or mints (0430am) Take only the following medications with a SIP of water on the morning of surgery: __NONE DO NOT STOP ANY OF YOUR OTHER PRESCRIPTION MEDICATIONS PRIOR TO SURGERY EXCEPT THE FOLLOWING Hold all vitamins and supplements for 3 days per anesthesiologist. Date of last dose 05/08/25 Medications to discontinue per physician ___Hold Motrin/Advil/Aspirin NSAIDS for [address] West Date to take last dose__05/04/25 Please no make-up, nail maltese, hairspray, perfume, deodorant, or body powder the day of surgery.? No jewelry (including any body piercings) or valuables the day of surgery, leave them at home.? Please take a shower or bath the night before, or the morning of, surgery with an antibacterial soap. GOLD DIAL ? Wear comfortable, loose fitting clothing.? Bring overnight bag, walker and cell phone - Jewelry must be removed prior to entering the operating room.? Rings and piercings that are not removed may be cut off. - The hospital will not accept responsibility for valuables.? - Please leave all valuables, including medications, at home the day of surgery. If you are going home after surgery, a licensed class b driver must drive you home.? - NO public transportation without another adult if you receive anesthesia. - We recommend that an adult stay with you for 24 hours following discharge. - We also recommend that you do not drive, make important decision, drink alcoholic beverages, or take any drugs that were not prescribed by your health care provider for at least 24 hours after your discharge time. Follow any additional instructions given to you from your surgeon. Telephone instructions given to _Patient and asked if any additional questions and then verbalized understanding. Patient advised to call surgeon office or pre surgery nurse liaison [phone] if any additional questions.
[2025-05-12] VITALS (13 sets, daily range): BP systolic 112–146; BP diastolic 55–89; PULSE 73–112; RESP 12–18; TEMP 36.1–36.7; O2SAT 94–100
--- NOTE | ~2025-05-12 | XR_ITS ---
EXAMINATION: [id number] DATE: 05/12/2025 11:56 INDICATION: Postoperative evaluation following left total knee arthroplasty. TECHNIQUE: Anteroposterior and lateral views of the left knee were obtained. COMPARISON: None. FINDINGS: Left total knee arthroplasty without patellar resurfacing appears well seated and in near anatomic alignment. No fractures identified. Expected postoperative subcutaneous and intra-articular gas. IMPRESSION: 1. Left total knee arthroplasty, negative for postoperative purposes. Reviewed, dictated and finalized at location A. FOUNDER AND CHAIRMAN
[2025-05-12] MEDS: ACETAMINOPHEN 500 MG TABLET 1000 MG PO (06:25)
[2025-05-12] MEDS: LACTATED RINGERS 1,000 ML 30 ML IV CONT ×2 (06:30→10:17)
[2025-05-12] MEDS: TRANEXAMIC ACID 1,000MG/ISO100 1,000 MG/100 ML BAG 200 MG IVPB (06:31)
[2025-05-12 06:43] LABS: BEDSIDEPREGUCG Negative (Negative)
--- NOTE | 2025-05-12 07:21 | WPDANESEPPF ---
Anes - Initial Pre Proc Eval Procedure: Operation Date: 05/12/25 07:30 Proposed Procedures p Left Total Knee Arthroplasty - Tong West MD Date/Time: 05/12/25 07:21 Surgeon: Tong West MD Pre Op Diagnosis: prim oa left knee Patient Data Age: 55 Gender: F Height: 1.7 m Weight: 94 kg Last Vital Signs Temp 98 F 05/12/25 06:10 Pulse 77 05/12/25 06:10 Resp 16 05/12/25 06:10 BP 146/89 H 05/12/25 06:10 Pulse Ox 99 05/12/25 06:10 O2 Del Method Room Air 05/12/25 06:10 Allergies Allergy/AdvReac Type Severity Reaction Status Date / Time No Known Allergies Allergy Verified 05/12/25 06:13 Home Medications ?Medication ?Instructions ?Recorded ?Confirmed ?Type ascorbic acid (vitamin C) 1,000 mg 1 g PO DAILY 10/10/21 05/12/25 History tablet vitamin B complex (B-Complex 1 tablet PO DAILY 10/10/21 05/12/25 History tablet) ergocalciferol (vitamin D2) 1,250 50,000 unit PO WEEKLY #4 caps 09/12/24 05/12/25 Rx mcg (50,000 unit) capsule (Vitamin D2) lisinopril 30 mg tablet 30 mg PO QAM #90 tabs 10/14/24 05/12/25 Rx ibuprofen 200 mg tablet (Addaprin) 400 mg PO ONCE PRN pain 04/15/25 05/12/25 History Laboratory Tests 05/12/25 05/12/25 06:10 06:34 POC Urine HCG, Qual Negative (Negative) Blood Type Pending Antibody Screen Pending Patient hx anesthesia problems: none Family hx anesthesia problems: none Results Review: All pre-operative results and documents have been reviewed as part of the pre-operative evaluation. [facility] Past Medical History Medical History Stye Cellulitis Chronic pain of right hip (~2022) x-ray of the right hip 11/06/2023 with severe osteoarthritis. Hip dysplasia Right Arthritis of right hip BMI 33.0-33.9,adult Encounter for IUD insertion mirena iud 2018 BMI 28.0-28.9,adult BMI 27.0-27.9,adult Overweight (BMI 25.0-29.9) BMI 30.0-30.9,adult Obesity (BMI 30.0-34.9) COVID-19 (~01/31/21) Elevated alkaline phosphatase level (09/25/20) alkaline phosphatase slightly elevated at 133 on 09/25/2020. Level normal at 96 on 10/08/2021. Level normal at 93 with AST 16, ALT 8 on 10/14/2022. Colon cancer screening Breast cancer screening by mammogram Mammogram normal 11/28/2022. normal mammogram 02/13/2024. Mixed hyperlipidemia Total cholesterol 154, triglycerides 41, HDL 83, LDL 61 on 10/08/2021. Total cholesterol 171, triglycerides 38, HDL 77, LDL 86 on 10/14/2022. Vitamin B12 deficiency anemia Level normal at 770 on 10/08/2021. Folic acid normal at greater than 20 with hemoglobin 14.6. Level normal at 836 with hemoglobin 13.7 on 11/03/2023. Bilateral chronic knee pain Adult BMI 37.0-37.9 kg/sq m Tooth pain Surgical History Surgical History S/P hip replacement 05/22/2024 right hip Family History Family History Father Malignant neoplasm of prostate Mother Family history of diabetes mellitus in first degree relative Diabetes mellitus, Onset Age: 56 Family history of mental disorder, Onset Age: 56 Depression, Onset Age: 56 Grandparent Diabetes mellitus, Onset Age: 61 Family history of cardiovascular disease Family history of Alzheimer's disease, Onset Age: 87 Other Hypertension Social History Social History Smoking status: Never smoker Second hand tobacco smoke exposure: Yes Alcohol intake: current Substance use: never Substance use type: does not use Lack of Transportation: No Lack of Food: Never True Current Housing: I Have Housing Concerned About Future Housing: No Difficulty Paying Gas/Electric Bills: No Difficulty Paying for Meds: No Currently Unemployed: No Education: Bachelor's Degree Difficulty w/ Childcare or Family Care: No Living arrangements: with family Additional living arrangements comments: Occupation/Education: occupation Gender identity (if verbalized by the patient): Female Sexual Orientation (if Verbalized by the Patient): Straight or Heterosexual Spiritual care concerns: No Anes - Eval Final PreProcedure Day of Procedure 05/12/25 07:21 Patient weight: obese Lungs: normal air movement Airway: Mallampati scale class II Neurological: alert and oriented Last oral intake: >/= 8 hours ASA classification: II Emergent: no Anesthetic plan: proceed Anesthesia type and monitoring: general ETT and standard monitoring Results Review: All pre-operative results and documents have been reviewed as part of the pre-operative evaluation. HTN, EKG w NSR. Informed Consent: The patient's anesthetic plan and its attendant risks and benefits were discussed with the patient/family/POA. Questions were solicited and answers provided to the satisfaction of the patient/family/POA.
--- NOTE | 2025-05-12 07:24 | WPDHPUPDATE1 ---
History and Physical Update Update Date/Time: 05/12/25 07:24 History and Physical has been reviewed, including an updated exam of the patient. There are NO changes in the patient's condition. Risks, benefits, and alternatives have been discussed and questions answered. Patient agrees to proceed with procedure.
[2025-05-12] MEDS: ceFAZolin 2 GM in SODIUM CHLORIDE 0.9% IV 50 ML 100 ML IVPB ×3 (07:45→23:18)
[2025-05-12] MEDS: SODIUM CHLORIDE 0.9% IV 37.7 ML, MORPHINE SULFATE INJ (*CRX) 2 MG, ROPivacaine HCL 1% 2... INFILTRATE (08:19)
[2025-05-12] MEDS: TRANEXAMIC ACID 1,000 MG/10 ML AMPUL 1000 MG IV PUSH (09:40)
--- NOTE | 2025-05-12 10:20 | W.PM.PROC2 ---
Procedure Note - Detailed Date of Procedure 05/12/25 Pre-op Diagnosis Left knee degenerative arthritis. Post-op Diagnosis Same Procedure Performed Calipered, kinematically aligned total knee replacement left knee. Surgeon Tong West MD Early Years Teacher Priya Muir PA-C Anesthesia General Indications Severe patellofemoral and progressive lateral disease. History of patellar dislocations. Findings According to the calipered kinematic alignment principles, the knee was balanced by the following verification checks incorporating 6 caliper measurements, using an insert goniometer to select the insert thickness, and adjusting the tibial resection following the kinematic alignment algorithm (see figure 160.10 published in [employer] chapter on kinematic alignment total knee arthroplasty.) The steps verified the femoral and tibial components were kinematically aligned coincident to the patient's pre arthritic joint lines, which closely restored the [place] tibial compartment forces and ligament laxities without ligament release. The [employer]act[employer] SperiKA knee, designed specifically for kinematic alignment, fit optimally. IT band released proximally. Popliteus released. PCL preserved. No further releases required. 1 degree external rotation added to improve patellar tracking. The record of verification checks were documented and scanned into the chart. Distal Femoral Resection: Distal Medial 8 mm, Distal Lateral 8 mm Target thickness of 8mm Unworn, 6mm Worn (No Cartilage). Posterior Femoral Resection: Posterior Medial 7 mm, Posterior Lateral 6 mm (1 degree external rotation) Target thickness of 7mm Unworn, 5mm Worn (No Cartilage). Description of Procedure General anesthesia was administered. A well-padded tourniquet was placed high on the thigh. The limb was prepped and draped in the usual sterile fashion. The limb was exsanguinated and the tourniquet inflated to 300 mmHg during exposure and cementation. A longitudinal incision was created over the midline of the knee. Sharp dissection was taken through subcutaneous tissues. Electrocautery was used for hemostasis. A subvastus approach to the knee joint was performed. The ACL, anterior horns of the menisci, and fat pad were excised, and a subperiosteal dissection was carried along the posterior medial border of the tibia. Starting midway between the top of the notch in the anterior femoral cortex, I drilled a 9 mm diameter hole parallel to the anterior cortex to minimize flexion of the femoral component and promote patella tracking. I verified the existence of a 5-10 mm bone bridge between the posterior aspect of the hole and the anterior limit of the intercondylar notch. An intraosseous positioning jaz was inserted 10 cm into the femur perpendicular to the distal joint line and parallel to the anterior cortex. I used a distal femoral referencing guide that compensated 2 mm when the cartilage was worn on the distal medial femoral condyle, and 2 mm when the cartilage was worn on the distal lateral femoral condyle. The basis for setting the distal and posterior femoral resection guide is knowing that the varus and valgus grade II to IV Kellegren-Kayode osteoarthritic knees have negligible bone wear at 0? and 90? and that the mean full-thickness cartilage wear approximates 2 mm. I measured the thickness of distal femoral resections with a caliper to +/- 0.5 mm. The thickness of each resection was adjusted to match the thickness of the respective condyle of the femoral component within 0.5 mm of target after compensating for cartilage wear and kerf. When the distal resection was 1-2 mm too thin, a recut guide was used to adjust the cut. When the distal resection was too thick, a 1 or 2 mm thick washer was fixed to the back of the 4-in-1 chamfer block to margaux a corrective gap between the femoral component and distal femur. I set posterior femoral referencing guide at 0? orientation to position the pin holes for the 4 in 1 chamfer block. The rolando wing measured the width of the distal femoral resection and selected the size of the 4 in 1 chamfer block and femoral component. The AP sizer confirmed the size. I measured the thickness of the posterior femoral resections with a caliper before making the anterior and chamfer cuts. I adjusted the thicknesses of each resection to match the thickness of the respective condyle of the femoral component within +/-0.5 mm after compensating for cartilage wear and curve. When a posterior resection femoral resection was 1-2 mm too thick or thin a corrective correction was made by shifting or rotating the 4 in 1 chamfer block as needed. The chamfer block was secured in the correct position with compression screws. The anterior and chamfer femoral resections were made. These caliper measurements and corrections verified that the femoral component was set coincident with the patient's pre-arthritic distal and posterior femoral joint lines. I removed all the medial and lateral femoral and tibial osteophytes to restore the pre arthritic length of the medial and lateral collateral ligaments. I cas AP lines along the major axis of the lateral tibial plateau in between the tibial spines which identified the flexion extension plane of the knee. A conventional extramedullary tibial resection guide was applied to the ankle. An rolando wing was placed medially in the saw slot. The varus valgus angle of the tibial resection guide was adjusted until the guide paralleled the proximal tibial articular surface after compensating for cartilage and bone wear. The slope of flexion extension angle of the tibial resection guide was adjusted until the rolando wing paralleled the slope of the medial tibia after compensating for wear. The AP axis of the tibial resection guide was adjusted parallel to the two lines. The proximal tibia was resected, partially releasing the insertion of the posterior cruciate ligament. The thickness of the medial and lateral lateral tibial condyle was measured at the base of the tibial spines. I visually verified the slope of the medial border of the resection was parallel to the patient's pre arthritic slope after compensating for cartilage and bone wear. I removed the remnants of the posterior horns of the menisci and posterior osteophytes and cauterized the inferior lateral genicular vessels. The Aquamantys bipolar device was also used to for additional hemostasis. When the knee had a preoperative flexion contracture of 20? or more I teased the capsule off the posterior femur with a curved 3 quarter-inch osteotome. I administered the posterior femoral periosteal injection by delivering 10 cc using a 20 gauge spinal needle at the most medial and 10 cc at the most lateral femoral spur surface which reduced the risk of injury to the posterior neurovascular structures. I followed 6 options in a decision tree to fine tune the varus valgus and posterior slope orientation of the tibial component to restore the patient's pre arthritic tibial joint line and limb alignment. First, I adjusted the varus-valgus orientation of the proximal tibia resection working in 1 degree to 2 degree increments until there was negligible medial and lateral lift off of the distal femoral and proximal tibial resection from the spacer block during a varus valgus laxity assessment in extension. I selected the largest anatomic shape trial tibial base plate that fit within the cortical boundary of the proximal tibial resection. The base plate was best fit parallel to the cortical boundary which set the Internal-external orientation of the anterior to posterior and medial to lateral positions. The best fit method set the AP axis of the tibial base plate and insert parallel to the flexion extension plane of the pre arthritic knee. I pinned the trial tibial base plate, prepared the cruciate slot, and fixed the base plate to the tibia with the cruciate stem. I inserted the trial femoral component. The knee was placed in full extension. Varus valgus laxity is of the knee with trial components were assessed. When asymmetric laxity was observed a 1-2 degree varus or valgus recut guide was used to fine tune the tibial resection until the laxity was 1 degree or less in full extension like the [place] knee. The following steps determined the optimal insert thickness within +/-1 mm. First I inserted an insert goniometer that matched the thickness of the spacer block. I reduced the patella and then with the knee in maximum extension, I verified the knee hyperextended a few degrees and had negligible varus valgus laxity, like the pre arthritic knee. Next, I measured the external tibial orientation which was the angle the insert goniometer intersected the sagittal line on the medial condyle of the femoral trial component. Then with the knee in 15-30 degrees flexion I verified a 3-4 mm gap in the lateral compartment and no gap in the medial compartment during a 2nd varus valgus laxity test. Next, I placed the knee in 90? of flexion and the foot resting on the operating table and measured the internal tibial orientation. I repeated the steps until I identified the insert thickness that provided the highest external tibia orientation in extension and the highest internal tibial orientation at 90? flexion without anterior lift-off of the insert from the tibial base plate. The insert with this thickness was implanted. I applied a posterior drawer test with the tibia distracted by gravity and verified no posterior subluxation of the tibia relative to the femur. The thickness of the [place] patella was measured with a caliper. It was 11mm thick, thus not resurfaced. The lateral patellar facet was resected using the oscillating saw. Tracking was poor; a proximal extraarticular IT band release was performed. Afterwards, the patella remained centered on the trochlea and tracked well throughout the entire arc of flexion and extension. I used pulse lavage to clean the bony surfaces of debris and dried bone. I cemented the tibial, femoral, and patellar components using 1 bag of methylmethacrylate with Gentamycin, then rechecked the stability at full extension, 15-30 degrees, and 90? flexion and verified adventism of the entire arc of motion of the knee. The circulating nurse confirmed the sponge and needle counts were correct. I used pulse lavage to rinse the joint and wound. The extensor mechanism was closed with interrupted #1 Vicryl suture and #1 running Stratafix suture. The subcutaneous layer was closed with interrupted #1 Vicryl suture followed by 2-0 Stratafix and 3-0 Stratafix. Steri-Strips placed on the skin. Silver impregnated occlusive dressing applied to the wound. A light gauze wrap and Ahmet bandage were placed. The patient was transferred to the recovery room in stable condition. There were no complications. Implants Medacta GMK spheriKA Femoral component SpheriKA size 2 +, tibial component size 2, vitamin-E flex insert, thickness 10 mm. Estimated Blood Loss 100 Tourniquet Time Total Tourniquet Time: 60 Drains No Pathology None sent Complications No immediate complications Condition Stable Disposition PACU [facility] Billing Surgery - Charge Forward: Surgery Billing
[2025-05-12] MEDS: fentaNYL CITRATE INJ (*CRX) 100 MCG/2 ML VIAL 25 MCG IV PUSH ×4 (10:40→11:10)
[2025-05-12] MEDS: oxyCODONE/ACETAMINOPHEN (*CRX) 10-325 MG TABLET 1 TAB PO ×2 (12:02→20:32)
--- NOTE | 2025-05-12 13:00 | ADMGEN ---
This patient, Xenia Marmolejo, was admitted to 3 [facility] Surg Room 317-02. Patient/family oriented to hospital policies and general routines including ID bracelet, bed and alarms, visiting hours, pain management, procedures, bathroom and other care routines, personal items, smoking policy, room service/diet, and visiting hours. Information on how to activate the Rapid Response Team has been discussed. Patient/Family are encouraged to report perceived risks to care and to ask questions if they do not understand what they are told or what they should do. Recieved report from Roula in PACU
[2025-05-12] MEDS: ASPIRIN 81 MG ENTERIC TABLET PO ×2 (13:44→20:32)
[2025-05-12] MEDS: SENNA/DOCUSATE SODIUM TABLET 2 TAB PO (13:45)
[2025-05-12] MEDS: MELOXICAM 7.5 MG TABLET PO (13:45)
[2025-05-12] MEDS: ACETAMINOPHEN 325 MG TABLET 650 MG PO ×3 (13:46→23:17)
[2025-05-12] MEDS: FAMOTIDINE 20 MG TABLET PO ×2 (13:46→20:32)
[2025-05-12] MEDS: ONDANSETRON INJ 4 MG/2 ML VIAL IV PUSH (14:39)
[2025-05-12] MEDS: oxyCODONE/ACETAMINOPHEN (*CRX) 5-325 MG TABLET 1 TABLET PO (23:17)
[2025-05-13 05:16] VITALS: BP 105/56; PULSE 77; RESP 16; TEMP 36.6; O2SAT 96
[2025-05-13] MEDS: ACETAMINOPHEN 325 MG TABLET 650 MG PO (05:56)
[2025-05-13] MEDS: oxyCODONE/ACETAMINOPHEN (*CRX) 10-325 MG TABLET 1 TAB PO (05:59)
[2025-05-13 06:16] LABS: Hematocrit 32.6 % (37.0-47.0); Hemoglobin 10.5 g/dL (12.0-15.0); Immature Granulocyte Percent A 0.3 % (0-0.5); Lymphocytes Absolute Auto 1.71 K/mm3 (0.9-3.2); Mean Corpuscular HGB Conc 32.2 g/dl (32-36); Mean Corpuscular Hemoglobin 30.2 pg (26-34); Mean Corpuscular Volume 93.7 fl (80-100); Nucleated Red Blood Cells Absolute Auto 0.000 K/mm3 (0.0-0.012); Nucleated Red Blood Cells Perc 0.0 % (0.0-0.2); Platelet Count Result 189 k/mm3 (150-375); Red Blood Count 3.48 M/mm3 (4.2-5.4); White Blood Count 8.6 K/mm3 (4.5-10.0)
[2025-05-13 06:38] LABS: Anion Gap 3 mmol/L (4-12); Blood Urea Nitrogen 12 mg/dL (7-17); Calcium 8.5 mg/dL (8.4-10.2); Carbon Dioxide 28 mmol/L (22-30); Chloride 103 mmol/L (98-107); Estimated CRCL calculation 94 ml/min; Estimated Glomerular Filt Rate > 60; Glucose 110 mg/dL (65-110); Potassium 4.0 mmol/L (3.4-5.0); Sodium 134 mmol/L (137-145)
--- NOTE | 2025-05-13 07:55 | PM.PNORT ---
Progress Note: A&P Assessment and Plan (1) Status post total left knee replacement: Code(s): Z96.652 - Presence of left artificial knee joint Status: Acute Assessment and Plan: Postop day 1: Left total knee arthroplasty. Patient tolerated procedure well. No complications. Pain manageable with pain medication. No numbness or tingling. We had a lengthy discussion regarding postoperative wound care, limitations, expectations, and exercises. Patient shows good understanding. She has had initial physical therapy and is tolerating it well. DVT prophylaxis: 81 mg baby aspirin b.i.d. for 14 days. Pain medication: Percocet. Prednisone. Meloxicam. Patient has followup appointment with Dr. West in 3 weeks. Subjective Subjective Date/Time Seen: 05/13/25 07:55 Interval history: Patient resting comfortably. No distal numbness or tingling. No other complaints. Review of Systems Review of Systems: All systems reviewed & are unremarkable except as noted in HPI and below Exam Narrative: 55-year-old overweight female. Resting comfortably in chair. Alert and oriented x3. No acute distress. Wearing compression socks bilaterally. Dressing dry and intact without drainage. Mild swelling. No ecchymosis. No erythema. No hematoma. Range of motion limited due to pain. Calf nontender. Neurologic status intact. No varicosities. Distal pulses palpable. Quad fires. Objective Data Vital Signs Vital Signs: Vital Signs - 24 hr 05/12/25 10:17 05/12/25 10:30 05/12/25 10:45 Temperature 98.0 F Pulse Rate 112 H 84 79 Respiratory Rate 18 15 12 Blood Pressure 146/87 H 121/79 118/76 Pulse Oximetry 100 94 94 Oxygen Delivery Simple Face Mask Room Air Room Air Oxygen Flow Rate 8 05/12/25 11:00 05/12/25 11:28 05/12/25 11:50 Temperature 97.3 F L Pulse Rate 79 84 77 Respiratory Rate 14 14 Blood Pressure 114/71 118/72 130/67 Pulse Oximetry 96 96 99 Oxygen Delivery Room Air Room Air Oxygen Flow Rate 05/12/25 12:05 05/12/25 12:35 05/12/25 13:35 Temperature 97.0 F L 97.3 F L 97.2 F L Pulse Rate 80 88 79 Respiratory Rate 14 14 14 Blood Pressure 125/73 140/68 119/67 Pulse Oximetry 100 97 98 Oxygen Delivery Oxygen Flow Rate 05/12/25 13:46 05/12/25 14:05 05/12/25 17:16 Temperature 97.2 F L Pulse Rate 73 Respiratory Rate 14 Blood Pressure 126/64 Pulse Oximetry 100 Oxygen Delivery Room Air Room Air Oxygen Flow Rate 05/12/25 20:24 05/12/25 23:20 05/13/25 05:16 Temperature 97.6 F 97.8 F 97.8 F Pulse Rate 89 78 77 Respiratory Rate 18 18 16 Blood Pressure 115/63 112/55 L 105/56 L Pulse Oximetry 98 95 96 Oxygen Delivery Oxygen Flow Rate Intake/Output Intake/Output: Intake & Output 05/10/25 05/11/25 05/12/25 05/13/25 23:59 23:59 23:59 23:59 Intake Total 1080 Output Total 0 Balance 1080 0 Meds/Results Medications: Active Medications Generic Name Dose Route Start Last Admin Trade Name Freq PRN Reason Stop Dose Admin Acetaminophen 650 mg 05/12/25 12:00 05/13/25 05:56 Acetaminophen 325 Mg Tablet PO 650 mg Q6HR LISBET Administration Aspirin 81 mg 05/12/25 11:31 05/12/25 20:32 Aspirin 81 Mg Enteric Tablet PO 81 mg Q12HR LISBET Administration Cyclobenzaprine HCl 5 mg 05/12/25 11:31 Cyclobenzaprine Hcl 5 Mg Tablet PO Q8H PRN Spasms Diphenhydramine HCl 25 mg 05/12/25 11:31 Diphenhydramine Hcl Inj 50 Mg/Ml Vial IV PUSH Q6H PRN Itching Famotidine 20 mg 05/12/25 11:31 05/12/25 20:32 Famotidine 20 Mg Tablet PO 20 mg Q12HR LISBET Administration Hydromorphone HCl 1 mg 05/12/25 11:31 Hydromorphone Hcl Inj (*Crx) 1 Mg/Ml Syr IV PUSH Q2H PRN Breakthrough Pain Rated 7-10 or NPO Hydromorphone HCl 0.5 mg 05/12/25 11:31 Hydromorphone Hcl Inj (*Crx) 1 Mg/Ml Syr IV PUSH Q2H PRN Breakthrough Pain Rated 4-6 or NPO Cefazolin Sodium 2 gm/ Sodium 50 mls @ 100 mls/hr 05/12/25 16:00 05/12/25 23:18 Chloride IVPB 05/13/25 08:29 100 mls/hr Q8H LIBSET Administration Lisinopril 30 mg 05/12/25 11:31 05/12/25 13:47 Lisinopril 10 Mg Tablet PO 30 mg QAM LISBET Administration Meloxicam 7.5 mg 05/12/25 11:31 05/12/25 17:39 Meloxicam 7.5 Mg Tablet PO Not Given BID LISBET Naloxone HCl 0.1 mg 05/12/25 11:31 Naloxone Hcl 0.4 Mg/Ml Vial IV PUSH Q2M PRN Opiate Reversal Ondansetron HCl 4 mg 05/12/25 11:31 05/12/25 14:39 Ondansetron Inj 4 Mg/2 Ml Vial IV PUSH 4 mg Q4H PRN Administration Nausea And Vomiting Oxycodone/Acetaminophen 1 tablet 05/12/25 11:31 05/12/25 23:17 Oxycodone/Acetaminophen (*Crx) 5-325 Mg Tablet PO 1 tablet Q4H PRN Administration Pain Rated 4-6 Oxycodone/Acetaminophen 1 tab 05/12/25 11:31 05/13/25 05:59 Oxycodone/Acetaminophen (*Crx) 10-325 Mg Tablet PO 1 tab Q6H PRN Administration Pain Rated 7-10 Polyethylene Glycol 17 gm 05/12/25 11:31 05/12/25 13:47 Polyethylene Glycol 3350 17 Gm Powd.Pack PO Not Given QAM [facility] Prednisone 5 mg 05/12/25 17:00 05/12/25 17:38 Prednisone 5 Mg Tablet PO 5 mg DAILY@1700 [facility] Administration Senna/Docusate Sodium 2 tab 05/12/25 11:31 05/12/25 17:39 Senna/Docusate Sodium Tablet PO Not Given BID [facility] Tramadol HCl 50 mg 05/12/25 11:31 Tramadol Hcl (*Crx) 50 Mg Tablet PO Q4H PRN Pain Rated 1-3 Radiology Results: ITS Impressions Knee X-Ray 05/12/25 11:56 IMPRESSION: 1. Left total knee arthroplasty, negative for postoperative purposes. Labs Labs: Laboratory Results - last 24 hr 05/13/25 05:47 WBC 8.6 RBC 3.48 L Hgb 10.5 L Hct 32.6 L MCV 93.7 MCH 30.2 MCHC 32.2 RDW 11.8 Plt Count 189 MPV 8.7 Immature Gran % (Auto) 0.3 Neut % (Auto) 72.0 Lymph % (Auto) 19.8 [place] % (Auto) 7.6 Eos % (Auto) 0.1 Baso % (Auto) 0.2 Lymph # (Auto) 1.71 [place] # (Auto) 0.7 H Eos # (Auto) 0.0 Baso # (Auto) 0.0 Abs Immat Gran (auto) 0.03 Absolute Neuts (auto) 6.2 Absolute Nucleated RBC 0.000 Nucleated RBC % 0.0 Sodium 134 L Potassium 4.0 Chloride 103 Carbon Dioxide 28 Anion Gap 3 L BUN 12 Creatinine 0.67 L Estim Creat Clear Calc 94 Estimated GFR > 60 Glucose 110 Calcium 8.5
[2025-05-13] MEDS: ceFAZolin 2 GM in SODIUM CHLORIDE 0.9% IV 50 ML 100 ML IVPB (09:07)
[2025-05-13] MEDS: FAMOTIDINE 20 MG TABLET PO (09:09)
[2025-05-13] MEDS: SENNA/DOCUSATE SODIUM TABLET 2 TAB PO (09:09)
[2025-05-13] MEDS: MELOXICAM 7.5 MG TABLET PO (09:09)
[2025-05-13] MEDS: ASPIRIN 81 MG ENTERIC TABLET PO (09:09)
[2025-05-13 09:16] VITALS: BP 101/54; PULSE 86; RESP 16; TEMP 36.8; O2SAT 97
[2025-05-13] MEDS: oxyCODONE/ACETAMINOPHEN (*CRX) 5-325 MG TABLET 1 TABLET PO (09:16)
== END 2025-05-13 11:20 | disposition home or self-care (01) ==
LOC: ANHSURGERY 07:21 → ANH3MEDSUR 11:36
PROVIDERS: Physician Assistant Surgical; PCP Family Medicine; Visit Provider Orthopaedic Surgery
PROC: (CPT 27447; principal; 2025-05-12 07:30)
DX: M17.12 Unilateral primary osteoarthritis, left knee (principal)
CPT/HCPCS: 27447; 36415; 73560; 80048; 85025; 86850; 86900; 86901; 97110; 97161; 97166; 97530; 97535; J0690; A9270; C1713; C1776; J0166; J1100; J1885; J2003; J2250; J2270; J2405; J2704; J2795; J3010; J3290; J7120; J7512

== ENCOUNTER 2025-05-26 15:07 | Outpatient (CLI) | payer BC, SELFPAY ==
--- NOTE | ~2025-05-26 | MM_ITS ---
EXAMINATION: MM screening osiris BI w irwin HISTORY: Screening TECHNIQUE: Craniocaudal and mediolateral oblique 3-D tomosynthesis images were obtained and synthetic 2-D images were generated. CAD analysis was submitted and interpreted. COMPARISON: Comparison to multiple prior studies sequentially, with oldest reviewed study dated , 01/01/2018 BREAST PARENCHYMAL COMPOSITION: Not Dense: There are scattered areas of fibroglandular density. FINDINGS: There is no evidence of suspicious mass, calcification, or architectural distortion to suggest malignancy in either breast. IMPRESSION: 1. No mammographic evidence of malignancy. 2. Recommend routine screening mammography in one year. BI-RADS Category 1: Negative Reviewed, dictated and finalized at location A. UMER SALES REPRESENTATIVE
== END 2025-05-26 15:08 | disposition home or self-care (01) ==
LOC: MICIMG 15:08
PROVIDERS: PCP Family Medicine; Visit Provider Obstetrics & Gynecology
DX: Z12.31 Encounter for screening mammogram for malignant neoplasm of breast (principal)
CPT/HCPCS: 77063; 77067